=== PATIENT | female | born 2000 | race Two or more races ===

== ENCOUNTER → 2023-11-18 | Outpatient (CLI) | payer MEDICAID ==
[2023-11-18 09:59] LABS: Basophils # (auto) 0 10 ^3/uL (0-0.2); Basophils % (auto) 0.5 % (0.0-2.0); Eosinophils # (auto) 0.1 10 ^3/uL (0-0.8); Eosinophils % (auto) 0.7 % (0.0-7.0); Hemoglobin 13.1 g/dL (12.2-16.2); Lymphocytes # (auto) 1.2 10 ^3/uL (0.4-5.4); Lymphocytes % (auto) 14.4 % (10.0-50.0); Mean Corpuscular Hemoglobin 31.4 pg (28.0-32.0); Mean Corpuscular Hgb Conc. 35.5 g/dL (32.0-36.0); Mean Corpuscular Volume 88.5 fL (80.0-100.0); Monocytes # (auto) 0.6 10 ^3/uL (0-1.3); Monocytes % (auto) 6.6 % (0.0-12.0); Neutrophils # (auto) 6.7 10 ^3/uL (1.6-8.6); Neutrophils % (auto) 77.8 % (37.0-80.0); Platelet Count (auto) 291 10^3/uL (140-450); Red Blood Cells 4.18 10^6/uL (4.0-5.20); Red Cell Distribution Width 13.2 % (11.8-14.3); White Blood Cell 8.6 10^3/uL (4.4-10.8)
[2023-11-18 10:29] LABS: Alanine Aminotransferase 10 U/L (7-40); Albumin 4.3 g/dL (3.2-4.8); Alkaline Phosphatase 76 U/L (46-116); Anion Gap 5 (5-15); Aspartate Aminotransferase 8 U/L (13-40); BUN/Creatinine Ratio 11.8 (10.0-20.0); Blood Urea Nitrogen 8 mg/dL (9-23); Calcium 9.5 mg/dL (8.7-10.4); Carbon Dioxide 26 mmol/L (20-30); Chloride 106 mmol/L (98-107); Glucose 81 mg/dL (74-106); LDL Cholesterol 63 mg/dL (< 100); Sodium 137 mmol/L (136-145); Triglycerides 71 mg/dL (< 150)
[2023-11-18 10:30] LABS: Bilirubin, Total 0.4 mg/dL (0.2-1.0); Cholesterol 132 mg/dL (< 200); HDL Cholesterol 59 mg/dL (40-59)
[2023-11-18 10:33] LABS: Thyroid Stimulating Hormone 3.76 uIU/mL (0.55-4.78)
[2023-11-18 10:41] LABS: Beta HCG, Quantitative 77432.6 mIU/mL (1.5-4.2)
[2023-11-18 10:42] LABS: Amphetamine Screen, Urine Neg (NEGATIVE)
[2023-11-18 10:44] LABS: Barbiturate Scree,Urine Neg (NEGATIVE); Benzodiazephine Screen, Urine Neg (NEGATIVE); Cocaine Screen, Urine Neg (NEGATIVE)
[2023-11-18 10:45] LABS: Cannabinoid Screen, Urine Neg (NEGATIVE); Opiate Scree,Urine Neg (NEGATIVE); Phencyclidine Screen, Urine Neg (NEGATIVE)
[2023-11-19 13:07] LABS: Chlamydia Trachomatis, NAA Negative (Negative); Neisseria gonorrhoeae, NAA Negative (Negative)
[2023-11-20 03:06] LABS: Varicella Zoster IgG Antibody <135 index (Immune >165)
[2023-11-20 18:06] LABS: QuantiFERON-TB Gold Plus Negative (Negative)
== END | disposition home or self-care (01) ==
LOC: LAB 09:21
PROVIDERS: ATTEND Obstetrics & Gynecology
DX: Z11.3 Encounter for screening for infections with a predominantly sexual mode of transmission (principal); N39.0 Urinary tract infection, site not specified; Z3A.00 Weeks of gestation of pregnancy not specified
CPT/HCPCS: 36415; 80053; 80061; 80307; 83036; 84439; 84443; 84702; 85025; 86703; 86762; 86787; 86850; 86900; 86901; 87086

== ENCOUNTER 2023-12-05 19:48 | Emergency (ER) | payer MEDICAID ==
[~2023-12-05] VITALS: Ht 175.3 cm; Wt 94.3 kg
[2023-12-05 21:24] LABS: Urine Amorphous Crystal FEW /hpf (None Seen); Urine Bacteria FEW /hpf (None Seen); Urine Blood Negative /uL (Negative); Urine Clarity Turbid (Clear); Urine Color Light-Orange (Yellow); Urine Protein, UAD TRACE (Negative); Urine Specific Gravity 1.024 (1.001-1.035); Urine Urobilinogen Normal (Negative); Urine WBC 7 /hpf (0 - 5)
[2023-12-05 21:24] LABS: Basophils # (auto) 0 10 ^3/uL (0-0.2); Basophils % (auto) 0.2 % (0.0-2.0); Eosinophils # (auto) 0.1 10 ^3/uL (0-0.8); Eosinophils % (auto) 0.6 % (0.0-7.0); Hematocrit 34.7 % (36.0-46.0); Hemoglobin 12.3 g/dL (12.2-16.2); Lymphocytes # (auto) 2.1 10 ^3/uL (0.4-5.4); Lymphocytes % (auto) 16.1 % (10.0-50.0); Mean Corpuscular Hemoglobin 31.7 pg (28.0-32.0); Mean Corpuscular Hgb Conc. 35.5 g/dL (32.0-36.0); Mean Corpuscular Volume 89.3 fL (80.0-100.0); Monocytes % (auto) 7.6 % (0.0-12.0); Neutrophils # (auto) 9.8 10 ^3/uL (1.6-8.6); Neutrophils % (auto) 75.5 % (37.0-80.0); Platelet Count (auto) 303 10^3/uL (140-450); Red Blood Cells 3.88 10^6/uL (4.0-5.20); Red Cell Distribution Width 13.6 % (11.8-14.3)
[2023-12-05 21:44] LABS: Alanine Aminotransferase 33 U/L (7-40); Albumin 4.1 g/dL (3.2-4.8); Alkaline Phosphatase 78 U/L (46-116); Anion Gap 7 (5-15); Aspartate Aminotransferase 21 U/L (13-40); BUN/Creatinine Ratio 10.6 (10.0-20.0); Bilirubin, Total 0.3 mg/dL (0.2-1.0); Blood Urea Nitrogen 7 mg/dL (9-23); Calcium 9.2 mg/dL (8.7-10.4); Carbon Dioxide 24 mmol/L (20-30); Chloride 106 mmol/L (98-107); Glucose 78 mg/dL (74-106); Lipase 39 U/L (12-53); Potassium 4.1 mmol/L (3.5-5.1); Sodium 137 mmol/L (136-145)
[2023-12-05] MEDS: SODIUM CHLORIDE 0.9% 1,000 ML IV ONE (22:04)
[2023-12-05 22:09] VITALS: BP 114/60; TEMP 98.1
[2023-12-05 22:10] VITALS: PULSE 76; RESP 18; O2SAT 100
[2023-12-05] MEDS ORDERED: CEPH500T PO (22:30)
[2023-12-05] MEDS ORDERED: METO-281 PO (22:30)
[2023-12-05] MEDS ORDERED: FAMO20TA10 PO (22:30)
[2023-12-05] MEDS: cefTRIAXone 1GM/50ML D5W 50 ML IV ONE (22:50)
[2023-12-05] MEDS: METOCLOPRAMIDE HCL 5MG/ml INJ 2ml VIAL IV ONE (22:50)
[2023-12-05] MEDS: FAMOTIDINE (10MG/ML) 2ML VL IV ONE (22:50)
== END 2023-12-05 23:22 | disposition home or self-care (01) ==
LOC: ER 19:48
DX: O23.42 Unspecified infection of urinary tract in pregnancy, second trimester (principal); R10.2 Pelvic and perineal pain; N39.0 Urinary tract infection, site not specified; K92.0 Hematemesis; Z3A.14 14 weeks gestation of pregnancy
CPT/HCPCS: 36415; 76805; 80053; 81001; 83690; 84702; 85025; 96361; 96365; 96375; 99285; J0696; J2765; J3490; J7030

== ENCOUNTER 2024-03-21 20:30 | Observation (INO) | payer MEDICAID ==
[~2024-03-21] VITALS: Ht 175.3 cm; Wt 104.3 kg
[~2024-03-21 20:30] MED LIST: CEPH500T PO; FAMO20TA10 PO; METO-281 PO
[2024-03-21] MEDS ORDERED: PREN1CAP (21:38)
[2024-03-21] MEDS ORDERED: FOLI-119 PO (21:38)
[2024-03-21] MEDS ORDERED: ASPI1CHW5 PO (21:38)
--- NOTE | 2024-03-22 07:32 | DVHDS2 ---
Physician Discharge Progress N Final Diagnosis: Yeast infection IUP 29 wk, Twin gestation Secondary Diagnosis: PROM not found Operations or Procedures: Operations or Procedures NST Commentary: Commentary SSE by RN, no pooling, no fluid noted, only yeast infection for which she is already taking meds for Nitrazine test neg Condition on Discharge: Stable Disposition: Home Discharge Instructions: Diet: Regular Activity: No Restrictions, As Tolerated Follow Up/Referral: Follow up with Bob Maldonado [facility] office at reported appointment on 03/22/24. Medications: Continue to take all prescribed medications as directed. Follow Up Care: Discharge Statement: "Patient was advised to return to the ER or call 911 if any headaches, dizziness, shortness of breath, chest pain, abdominal pain, bleeding, fevers, or worsening of medical condition. Patient was counseled about treatment plan, medications, possible side effects, patientverbalized understanding. All questions were answered to the best of my ability. This discharge took greater then 30 minutes in planning, reviewing document ation, counseling the patient, and discussing with other team members." NAYE CHONG DO Mar 22, 2024 07:32
== END 2024-03-21 22:02 | disposition home or self-care (01) ==
LOC: LDRP 20:30
PROVIDERS: ADMIT Obstetrics & Gynecology; ATTEND Obstetrics & Gynecology
DX: O42.913 Preterm premature rupture of membranes, unspecified as to length of time between rupture and onset of labor, third trimester (principal); O30.003 Twin pregnancy, unspecified number of placenta and unspecified number of amniotic sacs, third trimester; O98.813 Other maternal infectious and parasitic diseases complicating pregnancy, third trimester; B37.9 Candidiasis, unspecified; Z3A.29 29 weeks gestation of pregnancy; Z79.899 Other long term (current) drug therapy
CPT/HCPCS: 59025; 81002; G0378

== ENCOUNTER 2024-04-19 20:28 | Observation (INO) | payer MEDICAID ==
[~2024-04-19 20:28] MED LIST changes: +ASPI1CHW5 PO; +FOLI-119 PO; +PREN1CAP
[2024-04-19 22:05] LABS: Urine Bacteria FEW /hpf (None Seen); Urine Blood Negative /uL (Negative); Urine Budding Yeast OCCASIONAL /hpf (None Seen); Urine Clarity Clear (Clear); Urine Color Light-Yellow (Yellow); Urine Protein, UAD Negative (Negative); Urine Specific Gravity 1.013 (1.001-1.035); Urine Squamous Epithelial Cell FEW /hpf (<5); Urine Urobilinogen Normal (Negative); Urine WBC 24 /hpf (0 - 5); Urine pH 6.5 (5.0-9.0)
--- NOTE | 2024-04-19 22:59 | DVH ---
OB ULTRASOUND, LIMITED CLINICAL INDICATION: Decreased movement TECHNIQUE: Multiple grayscale ultrasound and M-mode images were obtained of the pelvis for evaluation of intrauterine . COMPARISON: None FINDINGS: Biophysical profile total score 11/12 breathin movements: 2 tone: 2 Amniotic fluid: 2 heart rate is 132 beats per minute position: Cephalic Placenta location: posterior IMPRESSION: Biophysical profile 11/12
--- NOTE | 2024-04-20 07:29 | DVHDS2 ---
Physician Discharge Progress N Final Diagnosis: Twin gestation, false labor Decreased movements Operations or Procedures: Operations or Procedures NST/BPP/ANNAMARIE WNL Not in labor cervix long on US Condition on Discharge: Stable Disposition: Home Discharge Instructions: Diet: Regular Activity: Light activity Follow Up/Referral: PRN Medications: N/A Follow Up Care: Discharge Statement: "Patient was advised to return to the ER or call 911 if any headaches, dizziness, shortness of breath, chest pain, abdominal pain, bleeding, fevers, or worsening of medical condition. Patient was counseled about treatment plan, medications, possible side effects, patientverbalized understanding. All questions were answered to the best of my ability. This discharge took greater then 30 minutes in planning, reviewing documentation, counseling the patient, and discussing with other team members." NAYE CHONG DO Apr 20, 2024 07:29
== END 2024-04-19 23:05 | disposition home or self-care (01) ==
LOC: LDRP 20:28
PROVIDERS: ADMIT Obstetrics & Gynecology; ATTEND Obstetrics & Gynecology
DX: O36.8130 Decreased fetal movements, third trimester, not applicable or unspecified (principal); O30.003 Twin pregnancy, unspecified number of placenta and unspecified number of amniotic sacs, third trimester; O47.9 False labor, unspecified; O99.513 Diseases of the respiratory system complicating pregnancy, third trimester; R06.02 Shortness of breath; Z3A.34 34 weeks gestation of pregnancy; Z79.899 Other long term (current) drug therapy; Z98.890 Other specified postprocedural states
CPT/HCPCS: 59025; 76818; 81001; 81002; 94760; G0378

== ENCOUNTER 2024-05-08 15:07 | Observation (INO) | payer MEDICAID ==
--- NOTE | 2024-05-08 16:22 | DVHDS2 ---
Physician Discharge Progress N Final Diagnosis: labor check twins Operations or Procedures: Operations or Procedures cooper horan Commentary: Commentary cx closedd,thick,high Condition on Discharge: Good Disposition: Discharge Instructions: Diet: Consistent carbohydrate Activity: Light activity Medications: na Follow Up Care: Specialist: pt will go to [facility] immediately Discharge Statement: "Patient was advised to return to the ER or call 911 if any headaches, dizzi ness, shortness of breath, chest pain, abdominal pain, bleeding, fevers, or worsening of medical condition. Patient was counseled about treatment plan, medications, possible side effects, patientverbalized understanding. All questions were answered to the best of my ability. This discharge took greater then 30 minutes in planning, reviewing documentation, counseling the patient, and discussing with other team members." MARILEE KIRKLAND DO May 08, 2024 16:22
== END 2024-05-08 16:26 | disposition home or self-care (01) ==
LOC: LDRP 15:07
PROVIDERS: ADMIT Obstetrics & Gynecology; ATTEND Obstetrics & Gynecology
DX: O30.003 Twin pregnancy, unspecified number of placenta and unspecified number of amniotic sacs, third trimester (principal); O62.9 Abnormality of forces of labor, unspecified; Z98.890 Other specified postprocedural states; Z79.899 Other long term (current) drug therapy; Z3A.36 36 weeks gestation of pregnancy
CPT/HCPCS: 59025; 81002; G0378